=== PATIENT | male | born 1985 | race African-American/Black ===

== ENCOUNTER 2017-01-05 08:32 | Emergency (ER) | payer OTHER ==
[~2017-01-05] VITALS: Ht 182.9 cm; Wt 73.0 kg
[2017-01-05] MEDS ORDERED: IBUPROFEN600 MG ORAL (08:43)
[2017-01-05] MEDS ORDERED: ROBAXIN-750750 MG PO (08:43)
[2017-01-05] MEDS ORDERED: Methocarbamol 750mg tab ORAL ONE (08:45)
[2017-01-05] MEDS ORDERED: Ketorolac 60mg Inj IM ONE (08:45)
[2017-01-05 08:46] VITALS: BP 130/82
--- NOTE | 2017-01-05 08:52 | Emergency Room Report ---
History of Present Illness General Chief Complaint: Pain Source: Patient Present Illness HPI 31YOM with left lower back pain s/p hit in back doing a layup playing basketball last night. Pain worse at night.l Improved with ibuprofen 600mg last night. Worse this morning. Denies lower extremity weakness, urinary/ fecal retention. Denies other injury. Allergies: Coded Allergies: No Known Allergies (Unverified , 01/05/17) Patient History Past Medical History: none Past Surgical History: none Pertinent Family History: none Social History: Denies: alcohol use, drug use, smoking Immunizations: UTD Reviewed Nursing Documentation: PMH: Agreed, PSxH: Agreed Nursing Documentation-PMH Past Medical History: No Stated History Review of Systems All Other Systems: negative except mentioned in HPI Physical Exam Vital Signs Date Time Temp Pulse Resp B/P Pulse Ox O2 Delivery O2 Flow Rate FiO2 01/05/17 08:36 98.4 58 17 130/82 98 Room Air Sp02 EP Interpretation: reviewed, normal General Appearance: normal inspection, well appearing, no apparent distress, alert Head: atraumatic ENT: normal ENT inspection, hearing grossly normal, normal voice Neck: normal inspection, full range of motion, supple, no bony tend Respiratory: normal inspection, lungs clear, normal breath sounds, no respiratory distress, no retraction, no wheezing Cardiovascular #1: regular rate, rhythm, no edema Gastrointestinal: normal inspection, normal bowel sounds, non tender, soft, no guarding, no hernia Genitourinary: no CVA tenderness Musculoskeletal: normal inspection, back normal, normal range of motion, Kong' s Sign negative, other - Left lower back. No trauma or ecchymoses. Mild ttp. No midline ttp Neurologic: alert, oriented x3, responsive, sign poster III-XII nml as tested, motor strength/tone normal Psychiatric: normal inspection, judgement/insight normal, mood/affect normal Skin: normal inspection, normal color, no rash Medical Decision Making Diagnostic Impression: Primary Impression: Pain ER Course 31YOM with left lower MSK pain s/p mild injury last night A: low suspicion for cord compression given well appearance, left paravertebral ttp, no focal neuro deficits, absence of midline ttp/masses and pain worse with movement with known exacerbating activity Rx Ibuprofen, Robaxin Heat/ICE PMD followup Last Vital Signs Date Time Temp Pulse Resp B/P Pulse Ox O2 Delivery O2 Flow Rate FiO2 01/05/17 08:36 98.4 58 17 130/82 98 Room Air Status: improved Disposition: HOME, SELF-CARE Condition: Improved Scripts Methocarbamol* (ROBAXIN-750*) 750 Mg Tablet 750 MG PO TID for 7 Days, #30 TAB 0 Refills Prov: KELLE DOAN M.D. 01/05/17 Ibuprofen* (MOTRIN*) 600 Mg Tablet 600 MG ORAL THREE TIMES A DAY for For Pain for 7 Days, #30 TAB 0 Refills Prov: KELLE DOAN M.D. 01/05/17 Patient Instructions: Musculoskeletal Pain EKLLE DOAN M.D. Jan 05, 2017 08:51
[2017-01-05 08:59] VITALS: BP 130/82
== END 2017-01-05 08:59 | disposition home or self-care (01) ==
LOC: EMR 08:36
DX: M54.5 Low back pain (principal)
CPT/HCPCS: 96372; 99284

== ENCOUNTER 2019-02-26 12:12 | Emergency (ER) | payer OTHER ==
[~2019-02-26] VITALS: Ht 182.9 cm; Wt 74.8 kg
[~2019-02-26 12:12] MED LIST: IBUPROFEN600 MG ORAL; ROBAXIN-750750 MG PO
[2019-02-26] MEDS ORDERED: NKM (12:28)
--- NOTE | 2019-02-26 12:39 | NUR ---
ED Nurse Note: PT WALKED IN TO ER TODAY FROM HOME. AOX4. PT HERE FOR ORTHOPEDIC FOLLOW UP AFTER RIGHT SIDED RUPTURED REGINALDO'S. PT STATES HE WAS SEEN AT [facility] X 02/06/19. PT PRESENTS WITH WRAPPED RIGHT FOOT AND CRUTCHES. PT DENIES NUMBESS OR TINGLING, CAP REFILL <2 SECONDS, SENSATION AND CIRCULATION INTACT, FULL ROM OF DIGITS.
--- NOTE | 2019-02-26 13:12 | NUR ---
ED Nurse Note: PT SITTING PEACEFULLY IN BED IN NAD. AOX4. DISCHARGE PAPERWORK AND REFERRAL TO ORTHOPEDICS EXPLAINED TO PT. PT VERBALIZES UNDERSTANDING AND ALL QUESTIONS ANSWERED. DISCHARGE PAPERWORK AND REFERRAL GIVEN TO PT AND ID WRISTBAND REMOVED. PT WALKED OUT OF ER WITH PROPER USE OF ASSISTIVE DEVICE AND ALL BELONGINGS.
[2019-02-26 13:13] VITALS: BP 128/74
--- NOTE | 2019-02-26 16:08 | Emergency Room Report ---
History of Present Illness General Chief Complaint: Lower Extremity Injury Source: Patient Present Illness HPI 33-year-old male presents ED for evaluation. Patient states that 20 days ago he was involved in a injury where he tore his right Achilles. Seen at another ER and placed in a posterior splint with some mild plantar flexion. Follow-up with orthopedics but states he did not have a PMD to provide him with referrals. Is here to get a referral. Denies any pain. Is able to ambulate with crutches without difficulty. No other aggravating relieving factors. Denies any other associated symptoms Allergies: Coded Allergies: No Known Allergies (Unverified , 01/05/17) Patient History Past Medical History: none Past Surgical History: none Pertinent Family History: none Social History: Denies: smoking, alcohol use, drug use Immunizations: UTD Reviewed Nursing Documentation: PMH: Agreed; PSxH: Agreed Nursing Documentation-PMH Past Medical History: No Stated History Review of Systems All Other Systems: negative except mentioned in HPI Physical Exam Vital Signs Date Time Temp Pulse Resp B/P (MAP) Pulse Ox O2 Delivery O2 Flow Rate FiO2 02/26/19 12:23 98.4 62 18 133/79 (97) 99 Room Air Sp02 EP Interpretation: reviewed, normal General Appearance: no apparent distress, alert, GCS 15, non-toxic Head: normocephalic Eyes: bilateral eye normal inspection, bilateral eye PERRL ENT: normal ENT inspection Neck: normal inspection Respiratory: normal inspection Cardiovascular #1: normal inspection Gastrointestinal: normal inspection Rectal: deferred Genitourinary: no CVA tenderness Musculoskeletal: other - R foot in posterior splint with plantar flexion Neurologic: alert, oriented x3, responsive, motor strength/tone normal, sensory intact, speech normal Psychiatric: judgement/insight normal, memory normal, mood/affect normal, no suicidal/homicidal ideation Skin: normal color Lymphatic: normal inspection Procedures Splinting Splinting : Consent: Verbal Splint: poserior short Pre-Proc Neuro Vasc Exam: normal Post-Proc Neuro Vasc Exam: normal Patient Tolerated: Well Complications: None Medical Decision Making Diagnostic Impression: Primary Impression: Achilles tendon injury Qualified Codes: S86.001D - Unspecified injury of right Achilles tendon, subsequent encounter ER Course Hospital Course 33 yo M presents s/p achilles rupture 20 days ago. in posterior splint. has not yet seen orthopedics Differential diagnoses include: Fracture, dislocation, sprain, contusion Clinical course Patient placed on stretcher. After initial history and physical, I discussed findings with patient. Neurovascularly intact. No signs of compartment syndrome. Patient will still need orthopedic evaluation with possible surgical fixation. Splint is old and dirty. We will replace with new posterior splint and placed in neutral position (not plantar flexion) Safe to discharge for close outpatient follow-up. Will provide orthopedic referrals Diagnosis - achilles tendon injury Stable and discharged to home . nonweight bearing Followup with PMD/ortho. Return to ED if symptoms recur or worsen Last Vital Signs Date Time Temp Pulse Resp B/P (MAP) Pulse Ox O2 Delivery O2 Flow Rate FiO2 02/26/19 13:13 98.3 64 17 128/74 100 Room Air Status: improved Disposition: HOME, SELF-CARE Condition: Stable Referrals: [facility] Open 24 hour /7 days a week by Appointment Only [address] [facility] [address] [facility] [id number] Patient Instructions: Achilles Tendon Rupture With Phase I Rehab[facility] Redd García MD Feb 26, 2019 16:08
== END 2019-02-26 13:12 | disposition home or self-care (01) ==
LOC: EMR 12:38
DX: S86.001D Unspecified injury of right Achilles tendon, subsequent encounter (principal); X58.XXXD Exposure to other specified factors, subsequent encounter
CPT/HCPCS: 29515; 99282